=== PATIENT | female | born 1985 | race Caucasian/White ===

== ENCOUNTER → 2018-09-05 13:28 | Outpatient (CLI) | payer OTHER, SELFPAY ==
[2018-09-05 16:44] LABS: Chlamydia Trachomatis by PCR Negative (Negative); Neisserai gonorrhoeae by PCR Negative (Negative); Probe Check PASS; Sample Adequacy Control PASS; Specimen Processing Control PASS
== END ==
PROVIDERS: Visit Provider Obstetrics & Gynecology
DX: Z11.3 Encounter for screening for infections with a predominantly sexual mode of transmission (principal); Z34.81 Encounter for supervision of other normal pregnancy, first trimester
CPT/HCPCS: 87491; 87591

== ENCOUNTER → 2018-09-19 10:45 | Outpatient (CLI) | payer OTHER, SELFPAY ==
[2018-09-19 13:45] LABS: Color, Urine Yellow (Yellow); Glucose, Dipstick Normal (Normal); Ketone-Dipstick Negative (Negative); Leukocyte Esterase-Dipstick 25 /ul (Negative); Nitrite-Dipstick Negative (Negative); Occult Blood-Urine 25 /ul (Negative); Protein-Dipstick Negative (Negative); Specific Gravity, Urine 1.025 (1.002-1.030); Urine Bilirubin Dipstick Negative (Negative); Urine Clarity Clear (Clear); Urine Urobilinogen Normal (Normal)
[2018-09-19 13:57] LABS: Absolute Neutrophil Count 6.9 X10^3/uL (2.0-7.7); Amphetamine Urine VISTA NEGATIVE (<1000 ng/mL); Barbiturate Urine VISTA NEGATIVE (< 200 ng/mL); Basophil# 0.01 X10^3/uL; Basophil% 0.1 % (0-1); Benzodiazepine Urine VISTA NEGATIVE (< 200 ng/mL); Cocaine Urine VISTA NEGATIVE (< 300 ng/mL); Ecstacy Urine VISTA NEGATIVE (< 500 ng/mL); Eosinophil# 0.01 X10^3/uL; Eosinophils% 0.1 % (0-5); Hemoglobin 14.4 g/dl (12.0-15.0); Lymphocyte % 21.4 % (19-41); Mean Corp Hgb Conc 33.5 g/gl (32-36); Mean Corpuscular Hgb 29.2 pg (27.0-32.0); Mean Corpuscular Volume 87.2 fL (81-99); Mean Platelet Vol. 11.4 fl (6.2-12.0); Methadone Urine VISTA NEGATIVE (< 300 ng/mL); Monocyte# 0.78 X10^3/uL; Neutrophil # 6.88 X10^3/uL (2.7-7.7); Neutrophil % 70.2 % (47-70); PCP Urine VISTA NEGATIVE (< 25 ng/mL); Platelet Count 230 K/mm3 (150-450); RBC Distribution Width CV 13.1 % (11.6-14.6); RBC Distribution Width SD 42.1 fl (35.1-43.9); Red Blood Count 4.93 M/mm3 (4.2-5.4); THC Urine VISTA NEGATIVE (< 50 ng/mL); Vista UDS pH Range 5; White Blood Count 9.8 K/mm3 (4.4-11.0)
[2018-09-19 13:59] LABS: Thyroid Stim Hormone (TSH) 2.77 uIU/mL (0.358-3.74)
[2018-09-19 14:04] LABS: POSITIVE COUNT NO; POSITIVE DIFFERENTIAL NO; POSITIVE MORPHOLOGY NO
[2018-09-19 14:42] LABS: HIV - WCH Non-Reactive (Nonreactive); Rubella IgG 148.9 IU/mL
[2018-09-20 08:44] LABS: HEPATITIS B SURFACE AG Negative (Negative); Hep C Antibodies <0.1 s/co ratio (0.0-0.9)
[2018-09-26 03:40] LABS: Prenatal RPR NONREACTIVE (NONREACTIVE)
== END ==
PROVIDERS: Visit Provider Obstetrics & Gynecology
DX: Z34.81 Encounter for supervision of other normal pregnancy, first trimester (principal)
CPT/HCPCS: 36415; 80307; 81002; 84443; 85025; 86703; 86762; 86803; 87340

== ENCOUNTER → 2019-01-28 09:32 | Outpatient (CLI) | payer OTHER, SELFPAY ==
[2019-01-28 10:47] LABS: Hemoglobin 11.5 g/dL (12.0-15.0); Mean Corp Hgb Conc 32.9 g/dL (32-36); Mean Corpuscular Hgb 30.8 pg (27.0-32.0); Mean Corpuscular Volume 93.8 fL (81-99); Mean Platelet Vol. 11.2 fl (6.2-12.0); Platelet Count 206 K/mm3 (150-450); RBC Distribution Width CV 13.2 % (11.6-14.6); RBC Distribution Width SD 45.1 fl (35.1-43.9); Red Blood Count 3.73 M/mm3 (4.2-5.4); White Blood Count 19.5 K/mm3 (4.4-11.0)
[2019-01-28 11:09] LABS: Glucose Challenge Gest 1H 50g 96 mg/dL (70-140)
== END ==
PROVIDERS: Visit Provider Obstetrics & Gynecology
DX: Z34.82 Encounter for supervision of other normal pregnancy, second trimester (principal)
CPT/HCPCS: 36415; 82950; 85027; 86850

== ENCOUNTER → 2019-04-01 11:36 | Outpatient (CLI) | payer OTHER, SELFPAY | PROVIDERS: Visit Provider Obstetrics & Gynecology | DX: Z36.85 Encounter for antenatal screening for Streptococcus B (principal) | CPT/HCPCS: 87081 ==

== ENCOUNTER 2019-04-22 15:54 | Inpatient (IN) | payer OTHER, SELFPAY ==
[2019-04-22 16:14] VITALS: BMI 29.7
[2019-04-22] MEDS: Lactated Ringers 1,000 ML 50 ML IV (16:40)
[2019-04-22 17:04] LABS: Absolute Lymphocyte Count 2.27 X10^3/uL (0.83-4.51); Absolute Neutrophil Count 11.6 X10^3/uL (2.0-7.7); Basophil# 0.05 X10^3/uL; Basophil% 0.3 % (0-1); Hematocrit 36.3 % (37-47); Hemoglobin 12.1 g/dL (12.0-15.0); Lymphocyte # 2.27 X10^3/ul (4.0); Lymphocyte % 14.6 % (19-41); Mean Corp Hgb Conc 33.3 g/dL (32-36); Mean Corpuscular Hgb 30.4 pg (27.0-32.0); Mean Corpuscular Volume 91.2 fL (81-99); Mean Platelet Vol. 11.4 fl (6.2-12.0); Monocyte# 1.41 X10^3/uL; Monocyte% 9.1 % (0-10); NRBC Flagged by Analyzer 0 % (0-5); Neutrophil # 11.58 X10^3/uL (2.7-7.7); Neutrophil % 74.3 % (47-70); Platelet Count 251 K/mm3 (150-450); RBC Distribution Width CV 13.8 % (11.6-14.6); RBC Distribution Width SD 45.3 fl (35.1-43.9); Red Blood Count 3.98 M/mm3 (4.2-5.4); White Blood Count 15.6 K/mm3 (4.4-11.0)
[2019-04-22 17:15] VITALS: BP 166/87; PULSE 94; RESP 18; TEMP 37.2; O2SAT 97
[2019-04-22] MEDS: Magnesium Sulfate 4gm/100mL 4 GM/100 ML IV.SOLN. IV ×2 (17:15→17:39)
[2019-04-22 17:30] LABS: International Normalized Ratio 1.1; Prothrombin Time (Protime)PT. 13.6 SECONDS (11.7-14.9)
--- NOTE | 2019-04-22 17:30 | HP.PCM_ITS ---
- Problem List (1) Pre-eclampsia Status: Acute Qualifiers: Trimester: third trimester Qualified Code(s): O14.93 - Unspecified pre- eclampsia, third trimester History Date of Admission: 04/22/19 Final JAVIER: 04/23/19 Final JAVIER Source: US <20 weeks Gestational age: 40 Weeks and 0 Days History of this : This is a 33 year-old, G [1], P [], at 39 6/7 weeks gestational age sent from office with elevated BPs, proteinuria and rupture of membranes during office exam. Denies headache, vision changes, abdominal pain. + contractions. Medical History: Medical History (Last Updated 04/23/19 @ 08:19 by Yeimi Jain MD) Patient denies medical problems Z78.9 Allergies No Known Allergies Allergy (Verified 04/22/19 16:12) Home Medications: Home Medications Vit No.130/Iron/Folic [ Tablet] 1 tab PO DAILY 04/22/19 Smoking Status: Never smoker Alcohol: None Number of Fetus(es): 1 NST - FHR Rate Baby A Baseline: 135 Variability:: Moderate Accelerations:: 15 x 15 Decelerations:: None NST Reactive:: Yes FHR Category:: Category I Uterine Activity:: 2/10 min History Past Pregnancies: Past Pregnancies Delivery Date Name GA/ Weeks Outcome Route Wt Sex Labor Length Anesthesia Delivery Location Provider FOB Labs: Mom's Labs & Results 04/22/19 04/22/19 04/22/19 16:40 16:40 16:40 WBC 15.6 H RBC 3.98 L Hgb 12.1 Hct 36.3 L MCV 91.2 MCH 30.4 MCHC 33.3 RDW Std Deviation 45.3 H RDW Coeff of Anibal 13.8 Plt Count 251 MPV 11.4 Immature Gran % (Auto) 1.700 H Neut % (Auto) 74.3 H Lymph % (Auto) 14.6 L [place] % (Auto) 9.1 Eos % (Auto) 0.0 Baso % (Auto) 0.3 Absolute Neuts (auto) 11.6 H Absolute Lymphs (auto) 2.27 Nucleated RBC % 0 PT 13.6 INR 1.1 APTT 28.7 Sodium 142 Potassium 2.6 L* Chloride 110 H Carbon Dioxide 23.0 Anion Gap 9 BUN 4 L Creatinine 0.55 Estim Creat Clear Calc 106.45 Est GFR (MDRD) Af Amer 166 Est GFR (MDRD) Non-Af 137 BUN/Creatinine Ratio 7.3 L Glucose 82 Lactic Acid Uric Acid 3.5 Calcium 8.5 Total Bilirubin 0.60 AST 16 ALT 22 Alkaline Phosphatase 192 H Total Protein 6.3 L Albumin 2.8 L Globulin 3.5 Albumin/Globulin Ratio 0.8 L Blood Type Antibody Screen 04/22/19 04/22/19 04/22/19 16:40 16:40 16:50 WBC RBC Hgb Hct MCV MCH MCHC RDW Std Deviation RDW Coeff of Anibal Plt Count MPV Immature Gran % (Auto) Neut % (Auto) Lymph % (Auto) [place] % (Auto) Eos % (Auto) Baso % (Auto) Absolute Neuts (auto) Absolute Lymphs (auto) Nucleated RBC % PT INR APTT Sodium Potassium Chloride Carbon Dioxide Anion Gap BUN Creatinine Estim Creat Clear Calc Est GFR (MDRD) Af Amer Est GFR (MDRD) Non-Af BUN/Creatinine Ratio Glucose Lactic Acid 1.0 Uric Acid Calcium Total Bilirubin AST ALT Alkaline Phosphatase Total Protein Albumin Globulin Albumin/Globulin Ratio Blood Type O NEGATIVE Antibody Screen TNP NEGATIVE Course Did the patient receive Yes care? Labs Blood Type: O RH: NEGATIVE RPR/VDRL/Syphilis Nonreactive Rubella status Immune HbSAg Negative Date Done: 09/19/18 Chlamydia Negative Gonorrhea Negative HIV/AIDS Non-Reactive Group B Strep: Negative Current Obstetrical History Gestational Diabetes No Incompetent Cervix No Infertility No IUGR No Macrosomia No Hypertension/Pre-eclampsia elevated BP Placenta Previa/Abruption No PTL/PROM No Uterine anomaly No Oligohydramnios No Polyhydramnios No Multiple gestation No Past Medical History Asthma No Diabetes No Hypertension No Heart disease No Mitral valve prolapse No Neurologic/Seizure disorder/ No Migraines Kidney disease No Liver disease No Varicosities No Clotting disorders/Hx of DVT No Thyroid Dysfunction No Other medical diseases No Psychiatric disorders No Major trauma No Abnormal PAP smear No Sleep apnea No Mammogram in the last 2 years No Social History Marital Status: Alleged father Nikhil Nagy Hx Smoking No Smoking Status Never smoker Expected Infant Delivery Method: Spontaneous Vaginal Number of Visits: 13 Physical Exam Vitals: Vital Signs Temp Pulse Resp BP Pulse Ox 98.9 F 94 18 166/87 H 97 04/22/19 17:15 04/22/19 17:15 04/22/19 17:15 04/22/19 17:15 04/22/19 17:15 General: Alert, Oriented x3, Cooperative, No apparent distress HEENT: Atraumatic, Normocephalic Cardiovascular: Regular rate, Regular Rhythm, Normal S1, Normal S2 Lungs: Normal air movement Abdomen: Soft, Non Tender, Non-Distended, Gravid Extremities:: Other - +3 b/l pitting edema to knees, no calf tenderness Neurological: - - +3 b/l patellar DTRs, single beat clonus PHOTOGRAPHY EDITOR: Normal external genitalia Estimated gestational size: Appropriate for gestational size Presentation: Cephalic Cervix Dilation (cm): 3 Station: -3 Effacement (%): 75 Assessment/Plan All Active Problems Pre-eclampsia (Acute) This is a 33 year-old, G [1], P [], at 39 6/7 weeks gestational age with preeclampsia, ROM in latent labor, Cat I FHR. -BPs severely elevated - hypertensive protocol initiated -Continueous monitoring -Magnesium for seizure prophylaxis -Plan for pitocin if no cervical change on next check - status reassuring
[2019-04-22 17:31] LABS: Partial Thromboplast Time 28.7 Seconds (24.1-36.2)
[2019-04-22] MEDS: Magnesium Sulfate 20 GM/500 ML BAG IV (17:45)
[2019-04-22 17:56] LABS: ALB/GLOB Ratio 0.8 RATIO (0.9-2.4); AST(SGOT) 16 U/L (15-37); Alanine Aminotransfer ALT/SGPT 22 U/L (13-56); Albumin, Serum 2.8 g/dL (3.2-5.0); Alkaline Phosphatase 192 U/L (45-117); Anion Gap 9 (5-15); BUN 4 mg/dL (7-18); BUN/Creat Ratio 7.3 RATIO (10-20); Calcium,Total 8.5 mg/dL (8.5-10.1); Chloride 110 mmol/L (98-107); Creatinine, Serum 0.55 mg/dL (0.55-1.02); EST Glomerular Filtration Rate 137 mL/min (>60); Est Glom Filt Rate - Afr Amer 166 mL/min (>60); Estimated Creatinine Clearance 106.45 ml/min; Globulin 3.5 g/dL (2.2-4.2); Glucose 82 mg/dL (74-106); Potassium 2.6 mmol/L (3.5-5.1); Protein, Total 6.3 g/dL (6.4-8.2); Sodium Level 142 mmol/L (136-145); Uric Acid 3.5 mg/dL (2.6-6.0)
[2019-04-22] MEDS: Labetalol 100 MG Tablet PO (18:34)
--- NOTE | 2019-04-22 18:45 | NURSING ---
See QS for pt vital signs.
[2019-04-22] MEDS: Potassium Chloride 10mEq/100mL 10 MEQ/100 ML IV.SOLN. 100 MEQ IV BOLUS ×4 (20:08→22:59)
[2019-04-22] MEDS: Oxytocin 30 units/NS 500 ml 30 UNITS/500 ML IV.SOLN IV (21:58)
[2019-04-22] MEDS: 0.9% Saline Lock 10 ML Syringe IV (23:57)
[2019-04-23] VITALS (17 sets, daily range): BP systolic 111–156; BP diastolic 62–83; PULSE 87–115; RESP 16–18; TEMP 36.3–37.7; O2SAT 97–100
[2019-04-23] MEDS: 0.9% Saline Lock 10 ML Syringe IV ×4 (01:26→21:31)
[2019-04-23] MEDS: Nalbuphine 10 MG/ML Ampul IV (01:27)
[2019-04-23] MEDS: Magnesium Sulfate 20 GM/500 ML BAG IV ×2 (03:42→13:40)
[2019-04-23] MEDS: Lactated Ringers 1,000 ML 50 ML IV (04:41)
--- NOTE | 2019-04-23 08:29 | PCM.PN.BLA ---
Progress Note LABOR PROGRESS NOTE Painful pressure with contractions. AVSS GEN - NAD, AAO x 3 FHR 135, minimal variability, + accelerations, + variable decelerations TOCO 3-4/10 min SVE FD/+1 station A/P: 33yo G1 @ 40wga with preeclampsia with severe features -Labs wnl -BPs normal to mildly elevated. Patient asx. Continue magnesium -Continue pitocin as tolerated by mother and fetus, status overall reassuring -Anticipate STROKE Vital Signs/Narrative: Vital Signs Temp Pulse Resp BP Pulse Ox 04/23/19 07:46 109 H 16 139/79 H 97 04/23/19 06:46 98.0 F 93 16 99 04/23/19 05:45 97.4 F L 92 146/77 H 98 04/23/19 04:45 97.9 F 16 156/77 H 99
[2019-04-23] MEDS: Oxytocin 30 units/NS 500 ml 30 UNITS/500 ML IV.SOLN 334 UNITS IV (09:28)
[2019-04-23] MEDS: Labetalol 100 MG Tablet PO ×2 (10:49→21:59)
[2019-04-23] MEDS: Ibuprofen 600 MG Tablet PO (11:42)
--- NOTE | 2019-04-23 19:55 | NURSING ---
bilateral sulca laceration with repair. Vagina and perineum swollen but palpates soft. Patient reports numbness to two fingers on right hand, normal throughout .
[2019-04-23 22:39] LABS: Absolute Lymphocyte Count 2.74 X10^3/uL (0.83-4.51); Absolute Neutrophil Count 27.6 X10^3/uL (2.0-7.7); Basophil# 0.06 X10^3/uL; Basophil% 0.2 % (0-1); Hematocrit 29.2 % (37-47); Hemoglobin 9.7 g/dL (12.0-15.0); Lymphocyte # 2.74 X10^3/ul (4.0); Lymphocyte % 8.1 % (19-41); Mean Corp Hgb Conc 33.2 g/dL (32-36); Mean Corpuscular Hgb 30.5 pg (27.0-32.0); Mean Corpuscular Volume 91.8 fL (81-99); Mean Platelet Vol. 11.5 fl (6.2-12.0); Monocyte# 3.19 X10^3/uL; Monocyte% 9.4 % (0-10); NRBC Flagged by Analyzer 0 % (0-5); Neutrophil # 27.55 X10^3/uL (2.7-7.7); POSITIVE COUNT YES; POSITIVE DIFFERENTIAL YES; Platelet Count 259 K/mm3 (150-450); RBC Distribution Width CV 14.5 % (11.6-14.6); RBC Distribution Width SD 47.8 fl (35.1-43.9); Red Blood Count 3.18 M/mm3 (4.2-5.4)
[2019-04-23 23:04] LABS: Potassium 3.4 mmol/L (3.5-5.1)
[2019-04-23 23:39] LABS: Differential Indicated SCAN CRITERIA MET
[2019-04-23 23:41] LABS: Anisocytosis RARE; Differential Comment SEE COMMENTS; Macrocytosis RARE; Platelet Estimate ADEQUATE (ADEQ); Red Cell Morphology N CHROM NORMAL (NORM C&C)
[2019-04-24 00:50] VITALS: BP 108/58; PULSE 86; RESP 17; TEMP 37
[2019-04-24 04:10] VITALS: BP 102/55; PULSE 79; RESP 17; TEMP 37.2; O2SAT 98
[2019-04-24 07:06] LABS: Absolute Lymphocyte Count 3.41 X10^3/uL (0.83-4.51); Absolute Neutrophil Count 24.1 X10^3/uL (2.0-7.7); Basophil# 0.07 X10^3/uL; Basophil% 0.2 % (0-1); Hemoglobin 9.3 g/dL (12.0-15.0); Lymphocyte # 3.41 X10^3/ul (4.0); Lymphocyte % 11.1 % (19-41); Mean Corp Hgb Conc 33.2 g/dL (32-36); Mean Corpuscular Hgb 30.9 pg (27.0-32.0); Mean Platelet Vol. 11.5 fl (6.2-12.0); Monocyte# 2.57 X10^3/uL; Monocyte% 8.4 % (0-10); NRBC Flagged by Analyzer 0 % (0-5); Neutrophil # 24.08 X10^3/uL (2.7-7.7); Neutrophil % 78.7 % (47-70); POSITIVE COUNT YES; POSITIVE DIFFERENTIAL YES; POSITIVE MORPHOLOGY YES; Platelet Count 256 K/mm3 (150-450); RBC Distribution Width CV 14.5 % (11.6-14.6); RBC Distribution Width SD 48.5 fl (35.1-43.9); Red Blood Count 3.01 M/mm3 (4.2-5.4)
[2019-04-24 07:09] LABS: White Blood Count 30.6 K/mm3 (4.4-11.0)
[2019-04-24 07:10] LABS: Differential Indicated SCAN CRITERIA MET
[2019-04-24 07:33] LABS: Reactive Lymphocyte 1+
[2019-04-24 08:15] VITALS: BP 130/67; PULSE 86; RESP 18; TEMP 37.1; O2SAT 99
[2019-04-24] MEDS: Ibuprofen 600 MG Tablet PO ×3 (08:22→20:23)
--- NOTE | 2019-04-24 08:38 | PN.OBGYN_ITS ---
Patient Problems: Active and Suspected Problems (Last Updated 04/23/19 @ 08:19 by Yeimi Grace MD) Pre-eclampsia (Acute) Subjective: Feeling well. okay and pain is well controlled. Objective: Sitting upright in bed. VSS. Hg stable at 9.3. WBC are decreasing today at 30. K 3.4 this am. Angel inplace with SCD pumps on. - Physical Exam Vitals/I&O's: Vital Signs Temp Pulse Resp BP Pulse Ox 99.0 F 79 17 102/55 L 98 04/24/19 04:10 04/24/19 04:10 04/24/19 04:10 04/24/19 04:10 04/24/19 04:10 Oxygen Delivery Method Room Air Weight: 69.1 kg Body Mass Index (BMI) 29.7 Intake and Output for Last 24 Hours 04/22/19 04/23/19 04/24/19 23:59 23:59 23:59 Intake Total 1027.03 / 1027.03 3926.97 / 3926.97 Output Total 800 / 800 5160 / 5160 225 / 225 Balance 227.03 / 227.03 -1233.03 / -1233.03 -225 / -225 General: Alert, Oriented x3, Cooperative HEENT: Atraumatic, PERRLA, EOMI, Normocephalic Neck: Supple, No JVD, Negative Carotid Bruits Lungs: Clear to auscultation, Normal air movement Cardiovascular: Regular rate, No murmurs Abdomen: Bowel Sounds Present, Soft, Non Tender, Passing Flatus, - - fundus u/1 Extremities: No edema, Capillary Refill Less than 3 Seconds Skin: No rashes, No breakdown Musculoskeletal: No Tenderness to Palpation of Joints or Extremities Neurological: Cranial nerves II-XII grossly intact Psych/Mental Status: Normal Affect, Appropriate Laboratory Results 04/23/19 22:02: Potassium 3.4 L 04/23/19 22:02: WBC 34.0 H*, RBC 3.18 L, Hgb 9.7 L, Hct 29.2 L, MCV 91.8, MCH 30.5, MCHC 33.2, RDW Std Deviation 47.8 H, RDW Coeff of Anibal 14.5, Plt Count 259, MPV 11.5, Immature Gran % (Auto) 1.300 H, Neut % (Auto) 81.0 H, Lymph % (Auto) 8.1 L, [place] % (Auto) 9.4, Eos % (Auto) 0.0, Baso % (Auto) 0.2, Absolute Neuts (auto) 27.6 H, Absolute Lymphs (auto) 2.74, Nucleated RBC % 0, Differential Comment SEE COMMENTS, Diff Path Review May pierce, Platelet Estimate ADEQUATE, RBC Morphology N CHROM, Anisocytosis RARE, Macrocytosis RARE 04/24/19 06:25: WBC 30.6 H*, RBC 3.01 L, Hgb 9.3 L, Hct 28.0 L, MCV 93.0, MCH 3 0.9, MCHC 33.2, RDW Std Deviation 48.5 H, RDW Coeff of Anibal 14.5, Plt Count 256, MPV 11.5, Immature Gran % (Auto) 1.600 H, Neut % (Auto) 78.7 H, Lymph % (Auto) 11.1 L, [place] % (Auto) 8.4, Eos % (Auto) 0.0, Baso % (Auto) 0.2, Absolute Neuts (auto) 24.1 H, Absolute Lymphs (auto) 3.41, Nucleated RBC % 0, Diff Path Review May pierce, Reactive Lymphocytes 1+ Current Medications Acetaminophen (Tylenol) 1,000 mg PO Q8H PRN PRN PRN Reason: Pain Score 1-3/10 Bisacodyl (Dulcolax) 10 mg RECTAL UD PRN PRN Reason: If no BM Calcium Gluconate () 1 gm IV X1 PRN PRN Reason: MAGNESIUM TOXICITY Dibucaine (Dibucaine) 1 applic TOPICAL TID PRN PRN; Protocol PRN Reason: Discomfort Hydrocortisone (Hytone) 1 applic TOPICAL TID PRN PRN; Protocol PRN Reason: Discomfort Ibuprofen (Motrin) 600 mg PO Q6H PRN PRN PRN Reason: Pain Score 1-3/10 Last Admin: 04/24/19 08:22 Dose: 600 mg Documented by: Labetalol HCl (Trandate) 100 mg PO BID [facility] Last Admin: 04/23/19 21:59 Dose: 100 mg Documented by: Methylergonovine Maleate (Methergine) 0.2 mg IM X1 PRN PRN Reason: Excess bleeding/uterine atony Ondansetron HCl (Zofran) 4 mg IV Q4H PRN PRN PRN Reason: Nausea Potassium Chloride (K-Dur) 40 meq PO BIDCM KEE Last Admin: 04/23/19 18:11 Dose: 40 meq Documented by: Senna/Docusate Sodium (Senokot-S, Carmen-Colace) 1 - 2 tablet PO DAILY PRN PRN PRN Reason: Constipation Simethicone (Mylicon) 80 mg PO PCHS PRN PRN Reason: Indigestion/Stomach pain Sodium Chloride () 5 - 15 ml IV UD PRN PRN Reason: SALINE FLUSH Last Admin: 04/23/19 21:31 Dose: 10 ml Documented by: Medical Necessity - Tobacco Use Smoking Status: Never smoker Assessment/Plan All Active Problems (Last Updated 04/23/19 @ 08:19 by Yeimi Jain MD) Pre-eclampsia (Acute) day #1 Stable PP. AVSS Pain control adequate. Is . Regular diet and increase activity as tolerated. Plan Ibuprofen, Tylenol and stool softener prn. Nursing assist prn. Plans to D/C indwelling angel catheter. Will repeat CBC and K level in AM 12/7. Oral K replacement today, pending results in AM will D/C. Continue care. POC reviewed with attending Dr. Jain.
--- NOTE | 2019-04-24 09:30 | NURSING ---
Angel cath d/c'd after 10 cc NS removed from angel bulb. Scott-care completed at bedside d/t pt. having uncontrollable diarrhea in bed. Pt. then up to the bathroom for scott-care and attempt to have another bowel movement. Pt. reports she has intermittent issues with diarrhea since well before . Reports she has had a colonoscopy, but unsure of cause of diarrhea. Takes imodium prn. Will obtain order for Imodium.
[2019-04-24] MEDS: Loperamide 2 MG Capsule PO (10:39)
[2019-04-24] MEDS: Labetalol 100 MG Tablet PO ×2 (10:42→22:04)
[2019-04-24 12:45] VITALS: BP 114/59; PULSE 77; RESP 18; TEMP 37.2; O2SAT 99
[2019-04-24] MEDS: 0.9% Saline Lock 10 ML Syringe IV (14:29)
[2019-04-24 14:32] LABS: Pathologist Review Reviewed
[2019-04-24 14:33] LABS: Pathologist Review Reviewed
--- NOTE | 2019-04-24 17:28 | PCM.OPRPT ---
Problem List (1) Pre-eclampsia Status: Acute Qualifiers: Trimester: third trimester Qualified Code(s): O14.93 - Unspecified pre-eclampsia, third trimester Report of Operation Date of Procedure: 04/23/19 Vaginal Delivery Maternal Presentation: Medically Indicated Induction Method of Induction: Pitocin Medical Reason for Induction: Preeclampsia, eclampsia Amniotic Membrane Rupture Type: Spontaneous Rupture of Membrane time: 1535h 04/22/19 Amniotic Fluid Description: Clear Final JAVIER: 04/23/19 Final JAVIER Source: US <20 weeks Gestational age: 40 Weeks and 0 Days Date of Procedure: 04/24/19 Pre-Operative Diagnosis: 40wga, preeclampsia Post-Operative Diagnosis: 40wga, preeclampsia Surgery/ Procedure Performed: Vacuum Assisted Vaginal Delivery Anesthesiologist: Julio Day Type of Anesthesia: Epidural Description of Procedure: Patient was FD/+4 station with Category II FHR with terminal bradycardia. Ritgen maneuver was applied with good maternal expulsive efforts and head delivered. Infant shoulders and body delivered to reveal a vigorous male infant. The infant was placed on the maternal abdomen and further attended by nursery personnel. Cord gases were obtained. The placenta delivered and appeared intact on inspection. Bilateral sulcal lacerations were repaired with 3-0 Vicryl Rapide with good hemostasis. Sponge and needle counts correct x 2. Presentation: Vertex Placental Delivery Description: Spontaneous Placenta Disposition: [facility] Cord Vessel Description: 3 Vessels Nuchal Cord Compression: Without compression Cord Gases drawn per routine: ABG, VBG Cord Entanglement: None Drain: Tineo to straight drain Estimated Blood Loss: 400 ml A gender: Male (1 minute): 8 (5 minute): 9 Episiotomy Description: None Laceration: Vaginal Extension/lac Medications given after delivery: IV Pitocin Complications: None
[2019-04-24 20:16] VITALS: BP 108/68; PULSE 83; RESP 16; TEMP 36.8
[2019-04-24] MEDS: Acetaminophen 500 MG Tablet 1000 MG PO (22:51)
[2019-04-25 02:00] VITALS: BP 126/68; PULSE 76; RESP 14; TEMP 36.3
[2019-04-25 04:18] LABS: Absolute Lymphocyte Count 4.13 X10^3/uL (0.83-4.51); Basophil# 0.06 X10^3/uL; Basophil% 0.3 % (0-1); Hematocrit 28.1 % (37-47); Hemoglobin 9.1 g/dL (12.0-15.0); Lymphocyte # 4.13 X10^3/ul (4.0); Lymphocyte % 18.2 % (19-41); Mean Corp Hgb Conc 32.4 g/dL (32-36); Mean Corpuscular Hgb 30.7 pg (27.0-32.0); Mean Corpuscular Volume 94.9 fL (81-99); Mean Platelet Vol. 10.8 fl (6.2-12.0); Monocyte# 2.21 X10^3/uL; Monocyte% 9.7 % (0-10); NRBC Flagged by Analyzer 0 % (0-5); Neutrophil # 16.01 X10^3/uL (2.7-7.7); Neutrophil % 70.3 % (47-70); POSITIVE DIFFERENTIAL YES; Platelet Count 268 K/mm3 (150-450); RBC Distribution Width CV 14.4 % (11.6-14.6); RBC Distribution Width SD 49.7 fl (35.1-43.9); Red Blood Count 2.96 M/mm3 (4.2-5.4); White Blood Count 22.7 K/mm3 (4.4-11.0)
[2019-04-25 04:20] LABS: Differential Indicated SCAN CRITERIA MET
[2019-04-25 04:27] LABS: Potassium 3.9 mmol/L (3.5-5.1)
[2019-04-25] MEDS: Ibuprofen 600 MG Tablet PO ×2 (06:50→12:53)
[2019-04-25 08:40] VITALS: BP 127/73; PULSE 72; RESP 16; TEMP 37.2
[2019-04-25] MEDS: Labetalol 100 MG Tablet PO (11:38)
[2019-04-25 13:12] VITALS: BP 138/85; PULSE 86; RESP 16; TEMP 36.7
--- NOTE | 2019-04-25 13:32 | DCINST_ITS ---
Discharge Diet: No Restrictions Discharge Activity: Return to Normal Activity, No Restrictions, May Drive, May Shower, May Take a Tub Bath Return to work on:: 06/05/19 May resume sexual activity in: 6-8 weeks Weight Bearing Status: Weight bearing as tolerated Lifting Restrictions: Nothng heavier than the baby for two weeks Additional Activity Instructions:: Minimal cleaning, cooking, shopping or driving for two weeks; try to get at least 8 hours sleep in 24 hours for the first two weeks - sleep when the baby sleeps Call your doctor if your incision/area has: Continuous Slow Oozing, Sudden Increased Bleeding, Increased Pain/ Swelling, Increased Redness, Foul Smelling Discharge Call your doctor if you observe: Fever of 101 or Higher, Inability to urinate, Inability to have a bowel movement, Using more than one pad per hour, Shortness of breath, Dizziness, Fainting spells, Chest pain, Increased palpitations (irregular heartbeat), Calf discomfort Additional Instructions: If you experience any of the following, contact your healthcare provider. * Bleeding that soaks a pad every hour for 2 hours * Fever 100.4 or higher * Unrelieved incision or abdominal pain * Swelling, redness, discharge or bleeding from your incision or episiotomy site * Your incision begins to separate * Problems urinating (including inability to urinate or burning while urinating). * Visual changes * Severe headache * Flu-like symptoms * Pain or redness in one of both of your breasts * Pain, warmth, tenderness or swelling in your legs, especially the calf area * Frequent nausea and vomiting * Symptoms of depression or anxiety If you experience any of the following, call 911 or go to the nearest Emergency Room. * Chest pain * Problems breathing * Seizure activity * Partial or complete paralysis of a body part, slurred speech, weakness or drooping of the face, or a sudden inability to walk or hold your balance Allergies/Adverse Reactions: Allergies No Known Allergies Allergy (Verified 04/22/19 16:12) Medications to take at Discharge Vit No.130/Iron/Folic [ Tablet] 1 tab PO DAILY 04/22/19 Labetalol [Trandate (Beta Cristela)] 100 mg PO BID 30 Days #60 tab 04/25/19 The following prescriptions were given: Labetalol [Trandate (Beta Cristela)] 100 mg PO BID 30 Days #60 tab Transmission Status: Pending to [facility] Please Follow Up With: Yeimi Jain MD When: 1 week for blood pressure check; 6 weeks for checkup Primary Care Physician: Hemanth Meehan MD [Primary Care Provider] - Test Results: Test results from this visit will be discussed in further detail at your follow- up appointment, if applicable. Proposed Discharge Date: 04/25/19
--- NOTE | 2019-04-25 13:58 | PCM.PN.OB ---
Patient Problems: Active and Suspected Problems (Last Updated 04/23/19 @ 08:19 by Yeimi Jain MD) Pre-eclampsia (Acute) Subjective: Pain well controlled, tolerating diet, passing flatus; going well; denies s/s preeclampsia; considering POP for contraception after 6 weeks; spouse bedside and supportive Objective: AVSS, BP mildly elevated Nipples atraumatic Fundus firm, midline, u/2, lochia small Perineal repair well approximated, now with minimal edema or bruising, no drainage noted - Physical Exam Vitals/I&O's: Vital Signs Temp Pulse Resp BP Pulse Ox 98.1 F 86 16 138/85 H 99 04/25/19 13:12 04/25/19 13:12 04/25/19 13:12 04/25/19 13:12 04/24/19 12:45 Oxygen Delivery Method Room Air Weight: 152 lb 5.431 oz Body Mass Index (BMI) 29.7 Intake and Output for Last 24 Hours 04/23/19 04/24/19 04/25/19 23:59 23:59 23:59 Intake Total 3926.97 / 3926.97 Output Total 5160 / 5160 425 / 425 Balance -1233.03 / -1233.03 -425 / -425 General: Alert, Oriented x3, Cooperative, No apparent distress HEENT: PERRLA, EOMI Oral: Moist Mucosa Neck: Supple Lungs: Clear to auscultation, Normal air movement Cardiovascular: Regular rate, Regular Rhythm Abdomen: Bowel Sounds Present, Soft, Non Tender, Passing Flatus Extremities: No edema Skin: No rashes Musculoskeletal: No Tenderness to Palpation of Joints or Extremities Neurological: Cranial nerves II-XII grossly intact, Deep Tendon Reflexes 2+/4 and Symmetrical, Neuro grossly intact Psych/Mental Status: Normal Affect, Appropriate, Alert and oriented to time, place, person, mood and affect Laboratory Results 04/23/19 22:02: Diff Path Review Reviewed 04/24/19 06:25: Diff Path Review Reviewed 04/25/19 04:09: WBC 22.7 H, RBC 2.96 L, Hgb 9.1 L, Hct 28.1 L, MCV 94.9, MCH 30.7, MCHC 32.4, RDW Std Deviation 49.7 H, RDW Coeff of Anibal 14.4, Plt Count 268, MPV 10.8, Immature Gran % (Auto) 1.500 H, Neut % (Auto) 70.3 H, Lymph % (Auto) 18.2 L, [place] % (Auto) 9.7, Eos % (Auto) 0.0, Baso % (Auto) 0.3, Absolute Neuts (auto) 16.0 H, Absolute Lymphs (auto) 4.13, Nucleated RBC % 0, Diff Path Review September04/25/19 04:09: Potassium 3.9 Current Medications Acetaminophen (Tylenol) 1,000 mg PO Q8H PRN PRN PRN Reason: Pain Score 1-310 Last Admin: 04/24/19 22:51 Dose: 1,000 mg Documented by: Bisacodyl (Dulcolax) 10 mg RECTAL UD PRN PRN Reason: If no BM Dibucaine (Dibucaine) 1 applic TOPICAL TID PRN PRN; Protocol PRN Reason: Discomfort Hydrocortisone (Hytone) 1 applic TOPICAL TID PRN PRN; Protocol PRN Reason: Discomfort Ibuprofen (Motrin) 600 mg PO Q6H PRN PRN PRN Reason: Pain Score 1-310 Last Admin: 04/25/19 12:53 Dose: 600 mg Documented by: Labetalol HCl (Trandate) 100 mg PO BID [facility] Last Admin: 04/25/19 11:38 Dose: 100 mg Documented by: Loperamide HCl (Imodium) 2 mg PO Q2H PRN PRN PRN Reason: Diarrhea Last Admin: 04/24/19 10:39 Dose: 2 mg Documented by: Methylergonovine Maleate (Methergine) 0.2 mg IM X1 PRN PRN Reason: Excess bleeding/uterine atony Potassium [facility] ([facility]) [facility] Last Admin: 04/25/19 11:31 Dose: 40 meq Documented by: Senna/Docusate Sodium (Senokot-S, Carmen-Colace) 1 - 2 tablet PO DAILY PRN PRN PRN Reason: Constipation Simethicone (Mylicon) 80 mg PO PCHS PRN PRN Reason: Indigestion/Stomach pain Medical Necessity - Tobacco Use Smoking Status: Never smoker Assessment/Plan All Active Problems (Last Updated 04/23/19 @ 08:19 by Yeimi Jain MD) Pre-eclampsia (Acute) Assessment: 33yo G1 now P1000 delivered via at 40w gestation by L=9w1d US PP day #2, normal involution Preeclampsia Elevated WBC, decreasing Lowered K+ levels, now improving Plan: D/w Dr. Mei Discharge teaching completed PO potassium DC'd Continue Labetalol, 100mg PO BID RTO 1 week for BP check, 6 weeks for checkup
--- NOTE | 2019-04-25 14:46 | NURSING ---
1435 infant and maternal bracelet numbers match; placed in car seat per parents; dc to home; pt given lab slip to bring back tomorrow for a bili check
[2019-04-27 15:41] LABS: Pathologist Review Reviewed
== END 2019-04-25 14:35 | disposition home or self-care (01) | DRG 807 ==
PROVIDERS: Obstetrics & Gynecology; Admitting Provider Obstetrics & Gynecology; Referring Provider Obstetrics & Gynecology; Visit Provider Obstetrics & Gynecology
DX: O14.14 Severe pre-eclampsia complicating childbirth (principal); Z37.0 Single live birth; O76 Abnormality in fetal heart rate and rhythm complicating labor and delivery; O42.12 Full-term premature rupture of membranes, onset of labor more than 24 hours following rupture; O71.4 Obstetric high vaginal laceration alone; Z3A.40 40 weeks gestation of pregnancy
CPT/HCPCS: 59025; 59050; 80053; 83605; 84132; 84550; 85025; 85610; 85730; 86850; 86900; 86901; 99218; J7120; A4216; G0378

== ENCOUNTER → 2020-06-21 | Outpatient (CLI) | payer OTHER, SELFPAY ==
[2020-06-24 14:03] LABS: HPV APTIMA, High Risk Negative (Negative)
== END | disposition home or self-care (01) ==
LOC: LABSPEC 10:14
PROVIDERS: Visit Provider Obstetrics & Gynecology
DX: Z12.4 Encounter for screening for malignant neoplasm of cervix (principal)
CPT/HCPCS: 87624; 88175; G0145

== ENCOUNTER → 2022-09-13 | Outpatient (CLI) | payer OTHER, SELFPAY ==
[2022-09-13 11:53] LABS: Absolute Neutrophil Count 9.1 X10^3/uL (2.0-7.7); Basophil# 0.04 X10^3/uL; Basophil% 0.3 % (0-1); Hematocrit 43.8 % (37-47); Hemoglobin 14.3 g/dL (12.0-15.0); Lymphocyte % 15.9 % (19-41); Mean Corp Hgb Conc 32.6 g/dL (32-36); Mean Corpuscular Hgb 29.1 pg (27.0-32.0); Mean Platelet Vol. 11.7 fl (6.2-12.0); Monocyte# 0.85 X10^3/uL; Monocyte% 7.1 % (0-10); NRBC Flagged by Analyzer 0 % (0-5); Neutrophil # 9.07 X10^3/uL (2.7-7.7); Neutrophil % 76.2 % (47-70); Platelet Count 254 K/mm3 (150-450); RBC Distribution Width CV 12.9 % (11.6-14.6); RBC Distribution Width SD 42.1 fl (35.1-43.9); Red Blood Count 4.92 M/mm3 (4.2-5.4); White Blood Count 11.9 K/mm3 (4.4-11.0)
[2022-09-13 12:01] LABS: Protein, Urine (Random) 16.3 mg/dL (<11.9); Protein:Creat Ratio 86 mg/g CRE (0-200)
[2022-09-13 12:08] LABS: AST(SGOT) 15 U/L (15-37); Alanine Aminotransfer ALT/SGPT 24 U/L (13-56); Albumin, Serum 4.1 g/dL (3.2-5.0); Alkaline Phosphatase 75 U/L (45-117); Anion Gap 3 (5-15); BUN 6 mg/dL (7-18); BUN/Creat Ratio 9.4 RATIO (10-20); Calcium,Total 9.5 mg/dL (8.5-10.1); Chloride 104 mmol/L (98-107); Creatinine, Serum 0.64 mg/dL (0.55-1.02); EST Glomerular Filtration Rate 113 mL/min (>60); Est Glom Filt Rate - Afr Amer 136 mL/min (>60); Glucose 91 mg/dL (74-106); LDH 170 U/L (84-246); Potassium 3.8 mmol/L (3.5-5.1); Protein, Total 8.1 g/dL (6.4-8.2); Sodium Level 133 mmol/L (136-145)
[2022-09-13 12:45] LABS: HIV - WCH Non-Reactive (Nonreactive); Hepatitis B Surface Antigen Non-Reactive (Nonreactive); Hepatitis C Antibody Non-Reactive (Nonreactive); Rubella IgG Reactive (Nonreactive); Syphilis Antibodies Non-reactive
[2022-09-14 05:07] LABS: V-Zoster IgG (Immunity) 1298 index (Immune >165)
== END | disposition home or self-care (01) ==
PROVIDERS: Visit Provider Obstetrics & Gynecology
DX: Z34.81 Encounter for supervision of other normal pregnancy, first trimester (principal)
CPT/HCPCS: 36415; 80053; 82570; 83615; 84156; 85025; 86703; 86762; 86780; 86787; 86803; 87077; 87086; 87088; 87186; 87340

== ENCOUNTER → 2022-10-03 | Outpatient (CLI) | payer OTHER, SELFPAY | END | disposition home or self-care (01) | LOC: WOBLAB 14:49 | PROVIDERS: Visit Provider Obstetrics & Gynecology | DX: Z34.81 Encounter for supervision of other normal pregnancy, first trimester (principal) | CPT/HCPCS: 36415; 86850 ==

== ENCOUNTER → 2022-11-29 | Outpatient (CLI) | payer OTHER, SELFPAY | END | disposition home or self-care (01) | LOC: LABSPEC 09:36 | PROVIDERS: Visit Provider Obstetrics & Gynecology | DX: N39.0 Urinary tract infection, site not specified (principal) | CPT/HCPCS: 87086; 87088 ==

== ENCOUNTER → 2023-01-10 | Outpatient (CLI) | payer OTHER, SELFPAY ==
[2023-01-10 12:10] LABS: Hematocrit 32.7 % (37-47); Hemoglobin 10.6 g/dL (12.0-15.0); Mean Corp Hgb Conc 32.4 g/dL (32-36); Mean Corpuscular Hgb 29.9 pg (27.0-32.0); Mean Corpuscular Volume 92.1 fL (81-99); Platelet Count 210 K/mm3 (150-450); RBC Distribution Width CV 12.8 % (11.6-14.6); RBC Distribution Width SD 42.8 fl (35.1-43.9); Red Blood Count 3.55 M/mm3 (4.2-5.4); White Blood Count 12.7 K/mm3 (4.4-11.0)
[2023-01-10 12:15] LABS: Glucose Challenge Gest 1H 50g 70 mg/dL (70-140)
[2023-01-10 12:43] LABS: Syphilis Antibodies Non-reactive
== END | disposition home or self-care (01) ==
LOC: WOBLAB 10:22
PROVIDERS: Visit Provider Obstetrics & Gynecology
DX: Z34.82 Encounter for supervision of other normal pregnancy, second trimester (principal)
CPT/HCPCS: 36415; 82950; 85027; 86780

== ENCOUNTER 2023-04-22 04:12 | Inpatient (IN) | payer OTHER, SELFPAY ==
[2023-04-22] VITALS (42 sets, daily range): BP systolic 108–143; BP diastolic 58–76; PULSE 60–163; RESP 16; TEMP 36.1–37.2; O2SAT 79–100; BMI 28.5
[2023-04-22] MEDS: Lactated Ringers 1,000 ML 50 ML IV (04:30)
[2023-04-22] MEDS: 0.9% Saline Lock 10 ML Syringe IV (04:50)
[2023-04-22] MEDS: fentaNYL 100 MCG/2 ML Ampul IV (04:50)
[2023-04-22 04:52] LABS: Absolute Lymphocyte Count 2.52 X10^3/uL (0.83-4.51); Absolute Neutrophil Count 17.1 X10^3/uL (2.0-7.7); Basophil# 0.06 X10^3/uL; Basophil% 0.3 % (0-1); Eosinophil# 0.02 X10^3/uL; Eosinophils% 0.1 % (0-5); Hematocrit 38.6 % (37-47); Hemoglobin 12.8 g/dL (12.0-15.0); Lymphocyte # 2.52 X10^3/ul (0.83-4.51); Lymphocyte % 11.8 % (19-41); Mean Corp Hgb Conc 33.2 g/dL (32-36); Mean Corpuscular Hgb 30.6 pg (27.0-32.0); Mean Corpuscular Volume 92.3 fL (81-99); Mean Platelet Vol. 11.6 fl (6.2-12.0); Monocyte# 1.35 X10^3/uL; Monocyte% 6.3 % (0-10); NRBC Flagged by Analyzer 0 % (0-5); Neutrophil # 17.13 X10^3/uL (2.7-7.7); Neutrophil % 80.3 % (47-70); Platelet Count 202 K/mm3 (150-450); RBC Distribution Width CV 14.2 % (11.6-14.6); RBC Distribution Width SD 47.4 fl (35.1-43.9); Red Blood Count 4.18 M/mm3 (4.2-5.4); White Blood Count 21.3 K/mm3 (4.4-11.0)
[2023-04-22 05:10] LABS: AST(SGOT) 18 U/L (15-37); Alanine Aminotransfer ALT/SGPT 11 U/L (13-56); Creatinine, Serum 0.55 mg/dL (0.55-1.02); EST Glomerular Filtration Rate 132 mL/min (>60); Est Glom Filt Rate - Afr Amer 160 mL/min (>60); Estimated Creatinine Clearance 102.55 ml/min; Uric Acid 4.1 mg/dL (2.6-6.0)
[2023-04-22 06:17] LABS: Syphilis Antibodies Non-reactive
--- NOTE | 2023-04-22 08:09 | PCM.HP.OB ---
HPI - General General Date of Admission: 04/22/23 Date of Service: 04/22/23 HPI Narrative THERESE RAZO, is a 37 F @ 39 .4 week who presents c/o ctx since 12 am- was 3cm on admission progressed to 5cm. PFSH PFSH Medical History (Updated 04/22/23 @ 08:[address] Chikis Crespo MD) Patient denies medical problems Home Medications vits no.130-ferrous fum 27 mg iron-folic acid 800 mcg tablet 1 tab PO DAILY 04/22/19 [History Last Taken 04/21/19] aspirin 81 mg tablet,delayed release 81 mg PO DAILY 04/22/23 [History Last Taken Unknown] ferrous sulfate 325 mg (65 mg iron) tablet (iron) 325 mg PO DAILY 04/22/23 [History Last Taken Unknown] valacyclovir 500 mg tablet mg 04/22/23 [History Last Taken Unknown] Allergy/AdvReac Type Severity Reaction Status Date / Time No Known Allergies Allergy Verified 04/22/19 16:12 Family History no significant family his Surgical History no surgical history Social History Smoking Status: Never smoker History Elective abortions Hx Para 1 Spontaneous abortions Hx # Term Pregnancies Ectopic pregnancies Hx # Pregnancies Multiple births # of living children NST FHR Rate Baby A Baseline: 140 Variability:: Moderate Accelerations:: 15 x 15 Decelerations:: None NST Reactive:: Yes FHR Category:: Category I Uterine Activity:: q2-5min Vital Signs Vital Signs Vital Signs: 04/22/23 01:56 04/22/23 01:56 04/22/23 01:56 Temperature Temperature Source Temporal Pulse Rate 75 Blood Pressure 141/74 H BP Systolic 141 BP Diastolic 74 Pulse Ox 04/22/23 01:56 04/22/23 01:56 04/22/23 01:56 Temperature 98.9 F Temperature Source Pulse Rate 78 Blood Pressure BP Systolic BP Diastolic Pulse Ox 97 04/22/23 04:07 04/22/23 04:07 04/22/23 06:08 Temperature Temperature Source Temporal Pulse Rate 60 Blood Pressure 143/65 H BP Systolic 143 BP Diastolic 65 Pulse Ox 04/22/23 06:09 04/22/23 06:09 04/22/23 06:08 Temperature Temperature Source Pulse Rate 65 Blood Pressure 135/65 H BP Systolic 135 BP Diastolic 65 Pulse Ox 97 04/22/23 06:08 04/22/23 07:16 04/22/23 07:16 Temperature 98.0 F Temperature Source Pulse Rate 67 Blood Pressure 137/75 H BP Systolic 137 BP Diastolic 75 Pulse Ox 04/22/23 07:16 04/22/23 07:15 04/22/23 07:15 Temperature Temperature Source Temporal Pulse Rate Blood Pressure BP Systolic BP Diastolic Pulse Ox 96 96 04/22/23 07:15 Temperature 98.2 F Temperature Source Pulse Rate Blood Pressure BP Systolic BP Diastolic Pulse Ox Weight Weight: 66.224 kg Body Mass Index (BMI) 28.5 Physical Exam Narrative AROM performed- scant clear fluid. Const alert and oriented x3 General Appearance: cooperative HEENT normocephalic GI GI Narrative: Gravid, non tender to palpation. OB / External & Speculum: external exam normal Extremity normal to inspection Skin no rashes or lesions noted Neuro oriented x3 and CN's II-XII intact bilaterally Psych Appearance: grossly normal Labs Labs Labs: Blood Type O NEGATIVE Antibody Screen NEGATIVE Hct 38.6 % (37-47) Hgb 12.8 g/dL (12.0-15.0) Syphilis Total Ab Non-reactive VZV IgG Antibody 1298 index (Immune >165) Rubella IgG Antibody Reactive (Nonreactive) Hep Bs Antigen Non-Reactive (Nonreactive) Hepatitis C Antibody Non-Reactive (Nonreactive) Hepatitis C Ab (EIA) <0.1 s/co ratio (0.0-0.9) HIV 1&2 Antibody Non-Reactive (Nonreactive) Glucose 1 Hr 50 gm 70 mg/dL (70-140) Rhogam given: No Miscellaneous Test Assessment & Plan (1) Anemia affecting : (2) History of pre-eclampsia in prior , currently : (3) 39 weeks gestation of : (4) Spontaneous onset of labor: (5) with care elsewhere: PLAN: Plan Admit to L&D [place] FHR/TOCO Epidural if requested for pain Monitor VS Anticipate Nitrous for pain control AROM performed- clear fluid
[2023-04-22] MEDS: Oxytocin 15 Units/NS 250ml 15 UNITS/250 ML IV.SOLN 83 UNITS IV (08:55)
[2023-04-22] MEDS: Lidocaine 1% (20 ml mdv) 20 ML Vial INFILT (08:55)
[2023-04-22] MEDS: Oxytocin 10 UNITS/ML Vial IM (08:55)
--- NOTE | 2023-04-22 09:15 | EX.PCM.OBRPT ---
Vaginal Delivery Operative Information Date of Procedure: 04/22/23 Pre-Operative Diagnosis: 39 weeks, active labor Post-Operative Diagnosis: same, live male Surgery / Procedure Performed: Spontaneous Vaginal Delivery Type of Anesthesia: None Special Medications: 1% lidocaine for perineal repair Estimated Blood Loss: 200 Time of Delivery: 08:53 Findings Description of Procedure: Patient progressed to fully dilated. Good maternal pushing efforts delivered the 's head followed by the anterior shoulder and the rest the infant's body without complication. The infant was placed on the mother's chest for immediate skin to skin. The infant was vigorous at time of delivery. Delayed cord clamping was performed for approximately 1 minute. Cord blood was obtained. Patient received IV and IM Pitocin per protocol. Second-degree perineal laceration was appreciated. 12cc 1% lidocaine was injected it was repaired using 2-0 Vicryl and 3-0 Rapide in the usual fashion. Delivery of placenta intact without complication. Presentation: Vertex Amniotic Membrane Rupture Type: Artificial Amniotic Fluid Description: Clear Placental Delivery Description: Spontaneous Placenta Disposition: [facility] Specimen(s) Removed: placenta Cord Vessel Description: 3 Vessels Cord Entanglement: None A Gender: Male (1 minute): 8 (5 minute): 9 Delayed Cord Clamping: Yes Post Vaginal Delivery Medications Given After Delivery: IV Pitocin and IM Pitocin Episiotomy Description: None Laceration: Perineal Extension/lac and 2nd degree Complication Complications: None
[2023-04-22 09:40] LABS: Protein, Urine (Random) 24.9 mg/dL (<11.9); Protein:Creat Ratio 384 mg/g CRE (0-200)
[2023-04-22] MEDS: Benzocaine/Lanolin/Aloe Vera 1 SPRAY EACH TOPICAL (10:13)
[2023-04-22] MEDS: Acetaminophen 500 MG Tablet 1000 MG PO ×2 (10:13→22:59)
[2023-04-22] MEDS: Ibuprofen 600 MG Tablet PO ×2 (10:46→18:07)
[2023-04-22] MEDS: Acyclovir 200 MG Capsule 400 MG PO ×2 (16:21→22:55)
[2023-04-23] MEDS: Ibuprofen 600 MG Tablet PO (03:43)
[2023-04-23 03:47] VITALS: BP 116/54; PULSE 70; RESP 16; TEMP 36.3; O2SAT 98
[2023-04-23] MEDS: Acyclovir 200 MG Capsule 400 MG PO (06:20)
[2023-04-23 08:10] VITALS: BP 130/73; PULSE 74; RESP 16; TEMP 36.6; O2SAT 99
--- NOTE | 2023-04-23 08:23 | PN.OBGYN_ITS ---
Subjective Subjective Doing well per patient and nursing staff. Ambulating and taking PO without difficulty. Voiding and passing flatus. Pain controlled. , services for assistance. Denies headache, visual changes, chest pain, shortness of breath, leg pain or increased bleeding. Lochia normal. Objective Data Objective Data Vital Signs: Vital Signs Temp Pulse Resp BP Pulse Ox O2 Del Method 97.3 F L 70 16 116/54 L 98 Room Air 04/23/23 03:47 04/23/23 03:47 04/23/23 03:47 04/23/23 03:47 04/23/23 03:47 04/23/23 03:47 Oxygen Delivery Method Room Air Weight: 146 lb Body Mass Index (BMI) 28.5 Intake & Output: Intake and Output for Last 24 Hours 04/21/23 04/22/23 04/23/23 23:59 23:59 23:59 Intake Total 469.17 / 469.17 Output Total 1000 / 1000 Balance -530.83 / -530.83 Lab / Micro Data 04/22/23 04:30 04/22/23 04:30 Labs: Laboratory Results - last 24 hr 04/22/23 08:35: U Random Total Protein 24.9 H, Urine Creatinine 64.80, Protein/Creatinin Ratio 384 H ROS Constitutional Constitutional: Reports systems reviewed and no addt'l complaints, except as documented; Denies headache(s) Eyes Eyes: Denies acute decrease in peripheral vision, blurry vision or change in vision ENT HEENT: Reports systems reviewed and no addt'l complaints, except as documented Cardiovascular Cardiovascular: Denies chest pain or dizziness Respiratory/Chest Respiratory/Chest: Denies cough, dyspnea, dyspnea on exertion, shortness of breath at rest or shortness of breath with exertion Gastrointestinal Gastrointestinal: Denies abdominal pain, diarrhea, nausea or vomiting Genitourinary Genitourinary: Denies abdominal discomfort Musculoskeletal Musculoskeletal: Denies limited range of motion Integumentary Integumentary: Reports systems reviewed and no addt'l complaints, except as documented Neurologic Neurologic: Reports systems reviewed and no addt'l complaints, except as documented Psychiatric Psychiatric: Reports systems reviewed and no addt'l complaints, except as documented Endocrine Endocrinology: Reports systems reviewed and no addt'l complaints, except as documented Hematologic/Lymphatic Hematologic/Lymphatic: Reports systems reviewed and no addt'l complaints, except as documented Allergic/Immunologic Allergic/Immunologic: Reports systems reviewed and no addt'l complaints, except as documented Physical Exam Const alert and oriented x3 General Appearance: cooperative Orientation / Consciousness: awake, oriented to person, oriented to place and oriented to time Exam Limitations: no limitations HEENT normocephalic Head and Scalp: normal to inspection, normocephalic and atraumatic Face and Sinus: normal facial exam Eyes General Eye: normal appearance of both eyes Neck full ROM Chest Chest: symmetrical chest wall rise Resp normal respiratory effort and normal air movement Auscultation: clear to auscultation bilaterally Cardio regular rate, regular rhythm, S1 normal heart sound, S2 normal heart sound, no murmurs, no rub, no gallops and no clicks GI normal to inspection, nondistended, normoactive bowel sounds and non-tender appearance of the vagina normal Bladder / Kidney Exam: no CVA tenderness Back/Spine normal ROM Extremity normal to inspection and full ROM Skin no rashes or lesions noted Neuro oriented x3, CN's II-XII intact bilaterally and moves all extremities Sensorium / Orientation: awake, alert and oriented to person Motor Exam: clonus absent Deep Tendon Reflexes: Rt Patellar (L4): 2+ and Lt Patellar (L4): 2+ Assessment & Plan (1) AMA (advanced maternal age) multigravida 35+: (2) Vaginal delivery: PLAN: Plan 1) PP day #1 2) Routine PP care 3) Pain management 4) Planning D/C home today 5) Follow up in 2 weeks and 6 weeks PP
--- NOTE | 2023-04-23 08:53 | PCM.DC.SUM ---
Providers Date of Admission: 04/22/23 Date of Discharge: 04/23/23 Primary Care Physician: STACY Lees Reason For Visit: LABOR AND DELIVERY Diagnosis Discharge Diagnosis (1) AMA (advanced maternal age) multigravida 35+: Status: Acute Code(s): O09.529 - Supervision of elderly multigravida, unspecified trimester (2) Vaginal delivery: Status: Acute Code(s): O80 - Encounter for full-term uncomplicated delivery Plan 1) PP day #1 2) Routine PP care 3) Pain management 4) Planning D/C home today 5) Follow up in 2 weeks and 6 weeks PP Medications at Discharge Home Medications vits no.130-ferrous fum 27 mg iron-folic acid 800 mcg tablet 1 tab PO DAILY 04/22/19 valacyclovir 500 mg tablet mg 04/22/23 acetaminophen 500 mg tablet 1,000 mg (2 x 500 mg) PO Q6H PRN PRN Pain 1-10 Or Fever #0 tabs 04/23/23 benzocaine 20 %-menthol 0.5 % topical aerosol (Dermoplast (with menthol)) 1 spray topical TID PRN PRN perineal discomfort #0 grams 04/23/23 ibuprofen 600 mg tablet 600 mg PO Q6H PRN PRN Pain 1-10 Or Fever #0 tabs 04/23/23 Hospital Course Summary of Care Provided Minutes Spent on Discharge: 15 Weight / BMI Weight Weight: 146 lb Body Mass Index (BMI) 28.5 ABG / Lab / Microbiology Data 04/22/23 04:30 04/22/23 04:30 Laboratory: Laboratory Results - last 24 hr 04/22/23 08:35: U Random Total Protein 24.9 H, Urine Creatinine 64.80, Protein/Creatinin Ratio 384 H D/C Instructions Discharge Diet: No restrictions Discharge Activity: Return to Normal Activity, May Drive, May Shower and May Take a Tub Bath May resume sexual activity in: 6 weeks Weight Bearing Status: Full weight bearing Lifting Restricted to (Lbs): 20 Call your doctor if you observe: Fever of 101 or Higher, Inability to urinate, Inability to have a bowel movement, Using more than 1 pad per hour, Shortness of breath, Chest pain, Increased palpitations (irregular heartbeat), Calf discomfort and Uncontrolled pain Please Follow Up With: Shoshana Vargas CNM When: 2 weeks virtual and 6 weeks in office Meaningful Use Info Meaningful Use Diagnoses (Choose all that apply): None applicable Discharge Plan Admission Admit Date/Time: 04/22/23 04:12 Primary Reason for Your Visit: Vaginal Delivery Attending Provider: Shoshana Vargas Primary Care Provider: Preethi Avery Discharge Orders/Prescriptions Prescriptions: New Dermoplast (with menthol) 20-0.5 % Aerosol 1 spray topical TID PRN PRN (Reason: perineal discomfort) Qty: 0 0RF Protocol: *Topical Application Instructions APPLICATION INSTRUCTIONS: 1 spray 3 times a day as needed for perineal discomfort acetaminophen 500 mg Tablet 1,000 mg PO Q6H PRN PRN (Reason: Pain 1-10 Or Fever) Qty: 0 0RF ibuprofen 600 mg Tablet 600 mg PO Q6H PRN PRN (Reason: Pain 1-10 Or Fever) Qty: 0 0RF Continued vit no.[id number] 1 EACH tablet 1 tab PO DAILY valacyclovir 500 mg tablet Patient Comments: TAKE 1 TABLET BY MOUTH TWICE DAILY Discontinued ferrous sulfate [iron] 325 mg (65 mg iron) tablet 325 mg PO DAILY aspirin 81 mg tablet,delayed release (DR/EC) 81 mg PO DAILY Referrals / Follow Up: Shoshana Vargas CNM [Med Staff - [facility]] - (2 week virtual and 6 week PP visit) Preethi Avery PA [Primary Care Provider] - Disposition Disposition (needs filled in before D/C Order can be placed): Home, Self Care
[2023-04-23 13:41] VITALS: BP 117/85; PULSE 101; RESP 16; TEMP 36.7
== END 2023-04-23 14:00 | disposition home or self-care (01) | DRG 807 ==
LOC: WPOUT 04:12 → WP 04:12
PROVIDERS: Admitting Provider Advanced Practice Midwife; Referring Provider Advanced Practice Midwife; Visit Provider Advanced Practice Midwife
DX: O99.02 Anemia complicating childbirth (principal); Z37.0 Single live birth; O70.1 Second degree perineal laceration during delivery; Z79.82 Long term (current) use of aspirin; Z3A.39 39 weeks gestation of pregnancy; Z79.899 Other long term (current) drug therapy
CPT/HCPCS: 59025; 59050; 82565; 82570; 84156; 84450; 84460; 84550; 85025; 86780; 86850; 86900; 86901; 99221; J7120; A4216; G0378